=== PATIENT | female | born 1990 | race Caucasian/White ===

== ENCOUNTER 2017-12-01 11:54 | Observation (INO) | payer OTHER ==
[~2017-12-01] VITALS: Ht 162.6 cm; Wt 71.7 kg
== END 2017-12-01 14:40 | disposition home or self-care (01) ==
LOC: SPU 11:54
PROVIDERS: ADMIT Obstetrics & Gynecology; ATTEND Obstetrics & Gynecology
DX: O46.92 Antepartum hemorrhage, unspecified, second trimester (principal); O26.892 Other specified pregnancy related conditions, second trimester; R10.30 Lower abdominal pain, unspecified; Z3A.23 23 weeks gestation of pregnancy
CPT/HCPCS: 76815; 81002; G0378

== ENCOUNTER 2018-03-27 00:15 | Inpatient (IN) | payer OTHER ==
[~2018-03-27] VITALS: Ht 162.6 cm; Wt 80.7 kg
[2018-03-27] MEDS ORDERED: LR 1,000 ML IV ONE (00:44)
[2018-03-27] MEDS ORDERED: NALBUPHINE HCL 10 MG/ML AMP IVP PRN ×2 (00:45→18:00)
[2018-03-27] MEDS ORDERED: AMPICILLIN SODIUM 2 GM in NS 100 ML IV ONE (00:45)
[2018-03-27] MEDS ORDERED: TERBUTALINE SULFATE 1 MG/ML VIAL SUBCUT ONE (00:45)
[2018-03-27 00:48] VITALS: BP_SYST 126
[2018-03-27] MEDS ORDERED: AMPICILLIN SODIUM 2 GM VIAL ONE (01:17)
[2018-03-27 01:24] LABS: BASOPHILS # (AUTO) 0.3 K/uL (0.0-0.2); BASOPHILS % (AUTO) 2.2 % (0.0-2.0); EOSINOPHILS % (AUTO) 0.3 % (0.0-4.0); HEMATOCRIT 35.7 % (36-48); LYMPHOCYTES # (AUTO) 2.1 K/uL (1.0-5.5); LYMPHOCYTES % (AUTO) 16.7 % (20.5-51.5); MEAN CORPUSCULAR HEMOGLOBIN 28 pg (27-31); MEAN CORPUSCULAR HGB CONC 34 % (32-36); MEAN CORPUSCULAR VOLUME 83 fL (79.0-98.0); MONOCYTES # (AUTO) 0.7 K/uL (0.0-1.0); MONOCYTES % (AUTO) 5.9 % (1.7-9.3); NEUTROPHILS # (AUTO) 9.3 K/uL (1.8-7.7); NEUTROPHILS % (AUTO) 74.9 % (40.0-70.0); PLATELET COUNT (AUTO) 260 K/uL (130-430); RED BLOOD CELL COUNT(AUTO) 4.29 MIL/uL (4.2-6.2); RED CELL DISTRIBUTION WIDTH 13.1 % (9.0-15.0); WHITE BLOOD COUNT (AUTO) 12.4 K/uL (4.8-10.8)
[2018-03-27] MEDS: LR 1,000 ML IV SCH ×3 (02:40→16:21)
[2018-03-27] MEDS ORDERED: ROPIVACAINE 0.2% 100 ML ONE ×2 (03:03→11:07)
[2018-03-27] MEDS ORDERED: fentaNYL CITRATE/PF 100 MCG/2 ML AMP ONE ×3 (03:03→19:12)
[2018-03-27] MEDS ORDERED: AMPICILLIN SODIUM 1 GM VIAL ONE (06:21)
[2018-03-27] MEDS: AMPICILLIN SODIUM 1 GM in NS 50 ML IV SCH ×3 (06:30→14:09)
[2018-03-27] MEDS ORDERED: OXYTOCIN/0.9 % SODIUM CHLORIDE 1,000 ML IV SCH (07:36)
[2018-03-27] MEDS ORDERED: CEFAZOLIN 2 GM IVPB PREMIX 50 ML IV ONE (16:45)
[2018-03-27] MEDS ORDERED: KETOROLAC TROMETHAMINE 60 MG/2 ML VIAL IM PRN (18:00)
[2018-03-27] MEDS ORDERED: DIPHENHYDRAMINE INJ 50 MG/ML VIAL IVP PRN (18:00)
[2018-03-27] MEDS ORDERED: ONDANSETRON HCL 4 MG/2 ML VIAL IVP PRN ×2 (18:00)
[2018-03-27] MEDS ORDERED: fentaNYL CITRATE/PF 100 MCG/2 ML AMP IVP PRN (18:00)
[2018-03-27] MEDS ORDERED: NALOXONE HCL 0.4 MG/ML AMP (NARCAN) IVP PRN ×2 (18:00)
[2018-03-27] MEDS ORDERED: MORPHINE SULFATE 10MG/10ML PF AMP EP SCH (18:00)
[2018-03-27 18:40] VITALS: BP_SYST 123
[2018-03-27] MEDS ORDERED: LR 1,000 ML IV SCH (18:51)
[2018-03-27] MEDS ORDERED: OXYTOCIN/0.9 % SODIUM CHLORIDE 1,000 ML IV ONE (18:51)
[2018-03-27] MEDS ORDERED: BISACODYL 10 MG/SUPPOSITORY RC PRN (19:00)
[2018-03-27] MEDS ORDERED: LANOLIN 7 GM OINT. TP PRN (19:00)
[2018-03-27] MEDS ORDERED: SIMETHICONE 80 MG TAB.CHEW PO PRN (19:00)
[2018-03-27] MEDS ORDERED: HYDROcodone/ACETAMIN 5-325 MG TAB (NORCO/ VICODIN) PO PRN (19:00)
[2018-03-27] MEDS ORDERED: DIPH-TET-PERTUS Vaccine 0.5 ML VIAL (ADACEL) I.M. PRN (19:00)
[2018-03-27] MEDS ORDERED: OXYCODONE/ACETAMINOPHEN 5-325 TABLET PO PRN (19:00)
[2018-03-27] MEDS ORDERED: SENNOSIDES/DOCUSATE SODIUM 1 TAB TABLET(SENOKOT-S) PO PRN (19:00)
[2018-03-27] MEDS ORDERED: MEASLES,MUMPS&RUBELLA VACC/PF 12500 UNIT/0.5 ML VIAL SUBQ PRN (19:00)
[2018-03-27] MEDS ORDERED: RHO(D) IMMUNE GLOBULIN/MALTOSE 1500 UNITS/1.3 ML (WINHRO) IM PRN (19:00)
[2018-03-27] MEDS: fentaNYL CITRATE/PF 100 MCG/2 ML AMP IVP PRN ×2 (19:10→19:22)
[2018-03-27] MEDS ORDERED: TEMAZEPAM 15 MG CAPSULE PO PRN (21:00)
[2018-03-28] MEDS: CEFAZOLIN 1 GM IVPB PREMIX 50 ML IV SCH ×3 (00:10→12:24)
[2018-03-28] MEDS: KETOROLAC TROMETHAMINE 30 MG VIAL IVP SCH ×2 (02:02→08:12)
[2018-03-28 07:51] LABS: HEMATOCRIT 29.5 % (36-48); HEMOGLOBIN 9.8 g/dL (12.0-16.0); MEAN CORPUSCULAR HEMOGLOBIN 28 pg (27-31); MEAN CORPUSCULAR HGB CONC 33 % (32-36); MEAN CORPUSCULAR VOLUME 86 fL (79.0-98.0); PLATELET COUNT (AUTO) 196 K/uL (130-430); RED BLOOD CELL COUNT(AUTO) 3.44 MIL/uL (4.2-6.2); RED CELL DISTRIBUTION WIDTH 13.4 % (9.0-15.0); WHITE BLOOD COUNT (AUTO) 20.7 K/uL (4.8-10.8)
[2018-03-28 09:49] LABS: EOSINOPHILS % (AUTO) 0.1 % (0.0-4.0); LYMPHOCYTES # (AUTO) 1.8 K/uL (1.0-5.5); LYMPHOCYTES % (AUTO) 8.6 % (20.5-51.5); MONOCYTES # (AUTO) 1.3 K/uL (0.0-1.0); MONOCYTES % (AUTO) 6.3 % (1.7-9.3); NEUTROPHILS # (AUTO) 17.6 K/uL (1.8-7.7)
[2018-03-28] MEDS: OXYCODONE/ACETAMINOPHEN 5-325 TABLET PO PRN (12:25)
[2018-03-28] MEDS ORDERED: BUPIVACAINE /PF 0.5% 30 ML VIAL EP ONE (16:22)
[2018-03-28] MEDS ORDERED: BUPIVACAINE /PF 0.25% 30 ML VIAL INJ ONE (16:22)
[2018-03-28] MEDS: IBUPROFEN 600 MG TABLET PO SCH (17:48)
[2018-03-29] MEDS: IBUPROFEN 600 MG TABLET PO SCH ×3 (00:23→12:23)
[2018-03-29] MEDS: OXYCODONE/ACETAMINOPHEN 5-325 TABLET PO PRN ×5 (00:24→23:08)
[2018-03-29] MEDS: DOCUSATE SODIUM 100 MG CAPSULE PO PRN ×2 (08:27→23:08)
[2018-03-30] MEDS: IBUPROFEN 600 MG TABLET PO SCH ×2 (00:35→05:52)
[2018-03-30] MEDS: OXYCODONE/ACETAMINOPHEN 5-325 TABLET PO PRN ×2 (05:52→10:00)
[2018-03-30] MEDS: DOCUSATE SODIUM 100 MG CAPSULE PO PRN (08:30)
[2018-03-30] MEDS ORDERED: MORPHINE SULFATE 10MG/10ML PF AMP EP ONE (17:31)
[2018-03-30] MEDS ORDERED: LR 1,000 ML IV.SOLN IV ONE (17:31)
[2018-03-30] MEDS ORDERED: MIDAZOLAM HCL 5 MG/5 ML VIAL IVP ONE (17:31)
[2018-03-30] MEDS ORDERED: KETOROLAC TROMETHAMINE 30 MG VIAL IVP ONE (17:31)
[2018-03-30] MEDS ORDERED: WATER FOR IRRIGATION,STERILE 1,000 ML IRRIG.SOLN IR ONE (17:31)
[2018-03-30] MEDS ORDERED: BUPIVACAINE /PF 0.75% 10 ML VIAL INJ ONE (17:31)
== END 2018-03-30 11:15 | disposition home or self-care (01) | DRG 788 ==
LOC: SPU 00:15 → OBSVTOIN 00:45 → SPU 03-29 10:45
PROVIDERS: ADMIT Obstetrics & Gynecology; ATTEND Obstetrics & Gynecology
PROC: 00HU33Z Insertion of Infusion Device into Spinal Canal, Percutaneous Approach (ICD-10-PCS; 2018-03-27)
PROC: 3E0R3BZ Introduction of Anesthetic Agent into Spinal Canal, Percutaneous Approach (ICD-10-PCS; 2018-03-27)
PROC: 10D00Z1 Extraction of Products of Conception, Low, Open Approach (ICD-10-PCS; principal; 2018-03-28)
DX: O76 Abnormality in fetal heart rate and rhythm complicating labor and delivery (principal); Z37.0 Single live birth; O99.824 Streptococcus B carrier state complicating childbirth; O62.1 Secondary uterine inertia; O77.0 Labor and delivery complicated by meconium in amniotic fluid; O69.81X0 Labor and delivery complicated by cord around neck, without compression, not applicable or unspecified; Z3A.40 40 weeks gestation of pregnancy
CPT/HCPCS: 36415; 85025; 86886; 86900; 86901; 94760; G0378; J0290; J0690; J1885; J2250; J2274; J2590; J2795; J3010; J3490; J7120